=== PATIENT | female | born 1995 | race Two or more races ===

== ENCOUNTER 2022-08-13 08:32 | Emergency (ER) | payer OTHER ==
[~2022-08-13] VITALS: Ht 157.5 cm; Wt 56.7 kg
--- NOTE | 2022-08-13 08:42 | NUR ---
SELF PRESENTS TO ED. C/O DEPRESSION FOR THE PAST SIX MONTHS, FOR A COUPLE OF IS FEELING SUICIDAL, DENIES ANY ACTIVE PLAN WHILE BEING TRIAGED. REQUESTING VOLUNTARY PSYCHIATRIC ADMISSION TO A PS FACILITY. DENIES HI. VERBALLY RESPONSIVE. DENIES ANY PAIN OR DISCOMFORT. STABLE VITALS. AWAITING MD SAGASTUME.
--- NOTE | 2022-08-13 09:02 | NUR ---
COVID SWAB DONE AND SENT TO LAB
[2022-08-13 09:22] LABS: BASOPHILS % (AUTO) 0.3 % (0.0-2.0); EOSINOPHILS % (AUTO) 1.2 % (0.0-6.0); HEMATOCRIT 42 % (33-45); HEMOGLOBIN 14.4 g/dL (11.5-14.8); LYMPHOCYTES # (AUTO) 1.3 K/uL (0.8-4.8); LYMPHOCYTES % (AUTO) 28.5 % (20.0-44.0); MEAN CORPUSCULAR HGB CONC 34 g/dl (31.0-36.0); MEAN CORPUSCULAR VOLUME 93 fL (82-100); MONOCYTES # (AUTO) 0.4 K/uL (0.1-1.30); MONOCYTES % (AUTO) 8.2 % (2.0-12.0); NEUTROPHILS # (AUTO) 2.8 K/uL (1.8-8.9); NEUTROPHILS % (AUTO) 61.8 % (43.0-81.0); PLATELET COUNT (AUTO) 263 K/uL (150-450); RED BLOOD CELL COUNT(AUTO) 4.53 MIL/uL (4.0-5.2); WHITE BLOOD COUNT (AUTO) 4.6 K/uL (4.3-11.0)
[2022-08-13 09:36] LABS: ALANINE AMINOTRANSFERASE 29 U/L (12-78); ALBUMIN 3.8 g/dL (3.4-5.0); ALKALINE PHOSPHATASE 63 U/L (46-116); ASPARTATE AMINOTRANSFERASE 27 U/L (15-37); BILIRUBIN,DIRECT 0.1 mg/dL (0.0-0.2); BILIRUBIN,TOTAL 0.6 mg/dL (0.2-1.0); CALCIUM, SERUM 8.7 mg/dL (8.5-10.1); CARBON DIOXIDE 24 mmol/L (21-32); CHLORIDE 106 mmol/L (98-107); CREATININE 0.8 mg/dL (0.6-1.3); GLUCOSE 97 mg/dL (74-106); POTASSIUM 3.7 mmol/L (3.5-5.1); SODIUM SERUM 139 mmol/L (136-145); TOTAL PROTEIN, SERUM 7.2 g/dL (6.4-8.2); UREA NITROGEN, BLOOD 11 mg/dL (7-18)
[2022-08-13 09:37] LABS: ACETAMINOPHEN < 10 ug/ml (10-30); ALCOHOL, BLOOD < 3 mg/dL (0-0)
--- NOTE | 2022-08-13 09:51 | NUR ---
URINE COLLECTED AND SENT TO LAB
[2022-08-13 10:17] LABS: BILIRUBIN,URINE NEGATIVE (NEGATIVE); COLOR,URINE YELLOW (YELLOW); LEUKOCYTE ESTERASE ,URINE NEGATIVE (NEGATIVE); NITRITE, URINE NEGATIVE (NEGATIVE); PROTEIN,URINE NEGATIVE (NEGATIVE); UGLUCOSE NEGATIVE (NEGATIVE); UROBILINOGEN,URINE 0.2 EU/dL (0.2)
[2022-08-13 11:09] LABS: BACTERIA,URINE Few /HPF (None Seen); RBC,URINE NONE SEEN /HPF (0-2); WBC,URINE NONE SEEN /HPF (0-3)
--- NOTE | 2022-08-13 11:49 | NUR ---
FACESHEET/CLINICALS FAXED TO [facility] INTAKE
--- NOTE | 2022-08-13 13:03 | NUR ---
SPOKE TO JOLIE ECHOLS, SHE DEEMED THE PATIENT APPROPRIATE FOR VOLUNTARY PSYCH AT [facility].
--- NOTE | 2022-08-13 14:13 | NUR ---
PER SUNITA OF [facility], PT IS ACCEPTED UNDER DR NIETO. GIVE REPORT TO [phone]. TRANSPORT SET UP BY [facility] 3PM
[2022-08-13 15:45] VITALS: BP 132/90
--- NOTE | 2022-08-13 15:49 | NUR ---
CALLED [facility]TAKE REGARDING TRANSPORT STATUS. THEY WILL CALL BACK FOR UPDATE.
--- NOTE | 2022-08-13 15:54 | NUR ---
CALLED TO GIVE REPORT, NO ANSWER
--- NOTE | 2022-08-13 16:00 | NUR ---
PICKED UP BY TRANSPORT IN STABLE CONDITION
== END 2022-08-13 16:18 ==
LOC: ER 08:35
DX: R45.851 Suicidal ideations (principal); F60.3 Borderline personality disorder; G40.909 Epilepsy, unspecified, not intractable, without status epilepticus; Z20.822 Contact with and (suspected) exposure to COVID-19
CPT/HCPCS: 99285; 85025; 80048; 80076; 84703; 81001; 36415; 87426; 80143; 80320; 80307; C9803; G0480

== ENCOUNTER 2022-08-14 22:07 | Emergency (ER) | payer OTHER ==
[~2022-08-14] VITALS: Ht 157.5 cm; Wt 59.0 kg
--- NOTE | 2022-08-14 22:18 | NUR ---
pt [id number] from [facility] c/o seizure witness by staff. pt is a/o x 4, rr even and unlabored no sob noted. pt to er bed 11. pt connected to monitors. no acute distress noted, will continue to monitor.
--- NOTE | 2022-08-14 23:42 | NUR ---
PT SIGNED [facility]
--- NOTE | 2022-08-15 00:15 | NUR ---
pt return from [place].
--- NOTE | 2022-08-15 00:50 | NUR ---
FACESHEET AND CLINICALS FAXED TO [facility].
[2022-08-15 01:43] LABS: BASOPHILS % (AUTO) 0.8 % (0.0-2.0); EOSINOPHILS % (AUTO) 1.1 % (0.0-6.0); HEMATOCRIT 43 % (33-45); HEMOGLOBIN 14.9 g/dL (11.5-14.8); LYMPHOCYTES # (AUTO) 2.1 K/uL (0.8-4.8); LYMPHOCYTES % (AUTO) 41.6 % (20.0-44.0); MEAN CORPUSCULAR HGB CONC 34 g/dl (31.0-36.0); MEAN CORPUSCULAR VOLUME 93 fL (82-100); MONOCYTES # (AUTO) 0.4 K/uL (0.1-1.30); MONOCYTES % (AUTO) 8.8 % (2.0-12.0); NEUTROPHILS # (AUTO) 2.4 K/uL (1.8-8.9); NEUTROPHILS % (AUTO) 47.7 % (43.0-81.0); PLATELET COUNT (AUTO) 262 K/uL (150-450); RED BLOOD CELL COUNT(AUTO) 4.63 MIL/uL (4.0-5.2)
[2022-08-15 01:55] LABS: BILIRUBIN,URINE NEGATIVE (NEGATIVE); COLOR,URINE YELLOW (YELLOW); LEUKOCYTE ESTERASE ,URINE NEGATIVE (NEGATIVE); NITRITE, URINE NEGATIVE (NEGATIVE); PROTEIN,URINE NEGATIVE (NEGATIVE); UGLUCOSE NEGATIVE (NEGATIVE); UROBILINOGEN,URINE 0.2 EU/dL (0.2)
[2022-08-15 01:56] LABS: CALCIUM, SERUM 9.1 mg/dL (8.5-10.1); CARBON DIOXIDE 27 mmol/L (21-32); CHLORIDE 103 mmol/L (98-107); CREATININE 0.8 mg/dL (0.6-1.3); GLUCOSE 95 mg/dL (74-106); POTASSIUM 3.6 mmol/L (3.5-5.1); SODIUM SERUM 137 mmol/L (136-145); UREA NITROGEN, BLOOD 13 mg/dL (7-18)
[2022-08-15 01:57] LABS: BACTERIA,URINE Rare /HPF (None Seen); RBC,URINE 0-2 /HPF (0-2); SQUAMOUS EPITHELIAL CELL,UR Few /HPF (None Seen); WBC,URINE 0-2 /HPF (0-3)
[2022-08-15 02:02] LABS: ALANINE AMINOTRANSFERASE 29 U/L (12-78); ALCOHOL, BLOOD < 3 mg/dL (0-0); ALKALINE PHOSPHATASE 61 U/L (46-116); ASPARTATE AMINOTRANSFERASE 24 U/L (15-37); BILIRUBIN,DIRECT 0.1 mg/dL (0.0-0.2); BILIRUBIN,TOTAL 0.6 mg/dL (0.2-1.0); TOTAL PROTEIN, SERUM 7.5 g/dL (6.4-8.2)
[2022-08-15 02:03] LABS: ACETAMINOPHEN 0 ug/ml (10-30)
--- NOTE | 2022-08-15 04:03 | NUR ---
patient reaccepted under md rojo pt to be sent after 11am report to be given at 10am
[2022-08-15] MEDS ORDERED: LEVE500T20 PO (08:26)
[2022-08-15] MEDS ORDERED: LORAZEPAM 1 MG TABLET ONE (08:47)
[2022-08-15] MEDS ORDERED: LEVETIRACETAM (500MG) 500 MG/5 ML VIAL IV ONE (08:47)
[2022-08-15] MEDS ORDERED: LEVETIRACETAM SOL (5 ML) 100 MG/ML UDC ONE (08:49)
[2022-08-15] MEDS ORDERED: LEVETIRACETAM SOL (5 ML) 100 MG/ML UDC PO SCH (09:00)
[2022-08-15] MEDS ORDERED: LORAZEPAM 1 MG TABLET PO ONE (09:00)
--- NOTE | 2022-08-15 10:01 | NUR ---
CALLED FOR REPORT BUT NO RESPONSE; LEFT VOICE MESSAGE AND CALL BACK NUMBER.
--- NOTE | 2022-08-15 10:05 | NUR ---
CALLED INTAKE PER SUNITA WILL CALL US TO WHEN PT WILL BE PICKED UP.
--- NOTE | 2022-08-15 10:28 | NUR ---
INTAKE CALLED [employer] MACHINE OPERATOR WILL COLLECT PT AT [phone]
--- NOTE | 2022-08-15 10:51 | NUR ---
Patient discharged to [facility], in stable condition. Written and verbal after care instructions given. Patient verbalizes understanding of instruction.
[2022-08-15 10:52] VITALS: BP 120/67
== END 2022-08-15 10:52 ==
LOC: ER 22:09
DX: G40.909 Epilepsy, unspecified, not intractable, without status epilepticus (principal); F32.A Depression, unspecified; F41.9 Anxiety disorder, unspecified
CPT/HCPCS: 99284; 70450; 82962; 85025; 80048; 80076; 84703; 81001; 36415; 80143; 80320; 80307; J1953; G0480